=== PATIENT | male | born 1980 | race Caucasian/White ===

== ENCOUNTER 2019-07-29 12:10 | Emergency (ER) | payer MEDICAID ==
[~2019-07-29] VITALS: Ht 180.3 cm; Wt 102.5 kg
[2019-07-29 12:17] VITALS: BP 146/96
--- NOTE | 2019-07-29 12:18 | NUR ---
PT C/O LEFT FOOT PAIN. PT WAS REMOVING THE FRONT DOOR WHEN THE DOOR FELL ON THE PT FOOT. LEFT FOOT APPEARS TO BE SWOLLEN. ABRASION ON TOP OF THE LEFT FOOT. NO ACTIVE BLEEDING PRESENT. NO PMHX NKA, NKDA
[2019-07-29] MEDS ORDERED: KETOROLAC 60 MG/2 ML VIAL IM ONE (12:20)
--- NOTE | 2019-07-29 12:25 | NUR ---
XRAY AT BEDSIDE
--- NOTE | 2019-07-29 12:53 | NUR ---
PT RESTING AT BEDSIDE. R/R EVEN AND UNLABORED. PT IS AWAKE.
--- NOTE | 2019-07-29 13:32 | NUR ---
Dr. Hinton is evaluating the patient at bedside.
[2019-07-29 13:38] VITALS: BP 146/96
--- NOTE | 2019-07-29 13:38 | NUR ---
Patient discharged with v/s stable. Written and verbal after care instructions given and explained. Patient alert, oriented and verbalized understanding of instructions. Ambulatory with steady gait. All questions addressed prior to discharge. ID band removed. Patient advised to follow up with PMD. Rx of MOTRIN AND NORCO given. Patient educated on indication of medication including possible reaction and side effects. Opportunity to ask questions provided and answered.
== END 2019-07-29 13:38 | disposition home or self-care (01) ==
LOC: MED 12:10
DX: S90.32XA Contusion of left foot, initial encounter (principal); F17.210 Nicotine dependence, cigarettes, uncomplicated; Z90.49 Acquired absence of other specified parts of digestive tract; W20.8XXA Other cause of strike by thrown, projected or falling object, initial encounter; Y93.89 Activity, other specified; Y92.89 Other specified places as the place of occurrence of the external cause; Y99.8 Other external cause status
CPT/HCPCS: 73630; 96372; 99283; J1885; Q0092